=== PATIENT | male | born 1990 | race Caucasian/White ===

== ENCOUNTER 2018-06-03 23:01 | Emergency (ER) | payer OTHER ==
[~2018-06-03] VITALS: Ht 185.4 cm; Wt 70.0 kg
[2018-06-04] MEDS ORDERED: IBUPROFEN 200 MG TABLET ONE (01:55)
[2018-06-04] MEDS ORDERED: IBUPROFEN 200 MG TABLET PO ONE (02:00)
[2018-06-04 02:02] VITALS: BP 117/67
== END 2018-06-04 02:10 | disposition home or self-care (01) ==
LOC: ED 06-04 01:18
DX: F10.120 Alcohol abuse with intoxication, uncomplicated (principal); R51 Headache
CPT/HCPCS: 70450; 99284